=== PATIENT | male | born 1960 | race African-American/Black ===

== ENCOUNTER 2017-11-27 23:09 | Emergency (ER) | payer OTHER, BC ==
[2017-11-27 23:12] VITALS: BP 146/92; PULSE 87; TEMP 98.6; BMI 25.0
--- NOTE | 2017-11-28 00:24 | PDOC ---
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 Patient reports he is to get his garbage when he made had a trip and fall and on his right elbow. Reports pain on the right elbow but denies other injuries. Denies any numbness or weakness. Patient is right-hand dominant. Came to the ER for further evaluation. Past History - Past Medical History Allergies/Adverse Reactions: Allergies Allergy/AdvReac Type Severity Reaction Status Date / Time No Known Allergies Allergy Verified 11/27/17 23:12 COPD: No Other medical history: DVT - Suicide/Smoking/Psychosocial Hx Smoking History: Never smoked Review of Systems - Review of Systems Able to Perform ROS?: Yes Comments:: 11/28/17 00:25 GENERAL/CONSTITUTIONAL: No fever or chills. No weakness. HEAD, EYES, EARS, NOSE AND THROAT: No change in vision. No ear pain or discharge. No sore throat. CARDIOVASCULAR: No chest pain or shortness of breath. RESPIRATORY: No cough, wheezing, or hemoptysis. GASTROINTESTINAL: No nausea, vomiting, diarrhea or constipation. GENITOURINARY: No dysuria, frequency, or change in urination. MUSCULOSKELETAL: + right elbow pain SKIN: No rash NEUROLOGIC: No headache, vertigo, loss of consciousness, or change in strength/ sensation. ENDOCRINE: No increased thirst. No abnormal weight change. HEMATOLOGIC/LYMPHATIC: No anemia, easy bleeding, or history of blood clots. ALLERGIC/IMMUNOLOGIC: No hives or skin allergy. *Physical Exam - Vital Signs Last Vital Signs Temp Pulse Resp BP Pulse Ox 98.6 F 87 18 146/92 98 11/27/17 23:11 11/27/17 23:11 11/27/17 23:11 11/27/17 23:11 11/27/17 23:11 - Physical Exam Comments: 11/28/17 00:34 GENERAL: Awake, alert, and fully oriented, in no acute distress HEAD: No signs of trauma EYES: PERRLA, EOMI, sclera anicteric, conjunctiva clear ENT: Auricles normal inspection, hearing grossly normal, nares patent, Moist mucosa NECK: Normal ROM, supple EXTREMITIES: Normal range of motion, no edema. No clubbing or cyanosis. No cords, erythema, or tenderness. RUE: 2+ radial pulse. Sensation and strength intact median/radian/ulnar nerve. No tenderness to wrist. Right elbow with swelling but FROM. Pain at posterior elbow. NEUROLOGICAL: Cranial nerves II through XII grossly intact. Normal speech, normal gait SKIN: Warm, Dry, normal turgor, no rashes or lesions noted. ED Treatment Course - RADIOLOGY Radiology Studies Ordered: Category Date Time Status ELBOW-RIGHT [RAD] Stat Radiology 11/28/17 00:09 Ordered Medical Decision Making - Medical Decision Making 11/28/17 00:36 Vital Signs Temp Pulse Resp BP Pulse Ox 98.6 F 87 18 146/92 98 11/27/17 23:11 11/27/17 23:11 11/27/17 23:11 11/27/17 23:11 11/27/17 23:11 R/o R elbow fracture. Xray and reassess. 11/28/17 01:47 Elbow xray negative for fracture. OMER wrap. RICE therapy. Follow up with orthopedics if persistent pain. *DC/Admit/Observation/Transfer Diagnosis at time of Disposition: Elbow pain, right - Discharge Dispostion Disposition: HOME Condition at time of disposition: Stable Decision to Admit order: No - Referrals Referrals: Gil Arango [Primary Care Provider] - Hank Barrios MD [Staff Physician] - - Patient Instructions Printed Discharge Instructions: DI for Elbow Pain Additional Instructions: Your xray is negative for fracture. Please use the OMER wrap as needed for comfort. Use ice several minutes for several times a day. Elevate the arm as much as you can. If your pain is persistent for more than 1 week, please make an appointment with an orthopedist. - Post Discharge Activity
== END 2017-11-28 02:09 | disposition home or self-care (01) ==
LOC: JER 23:09
DX: M25.511 Pain in right shoulder (principal); W01.0XXA Fall on same level from slipping, tripping and stumbling without subsequent striking against object, initial encounter; Y93.89 Activity, other specified; Y92.89 Other specified places as the place of occurrence of the external cause; Y99.8 Other external cause status
CPT/HCPCS: 73070-TC-RT-FY; 99281-25